=== PATIENT | male | born 1970 | race Caucasian/White ===

== ENCOUNTER 2025-08-11 21:20 | Emergency (ER) | payer SELFPAY ==
[2025-08-11 21:40] VITALS: BMI 30.5
[2025-08-11 21:41] VITALS: BP 133/90
[2025-08-11 21:56] LABS: Hematocrit 43.7 % (39.0-52.0); Hemoglobin 15.0 g/dL (13.0-18.0); Mean Corp Hgb Conc. 34.3 g/dL (33.0-37.0); Mean Corpuscular Volume 87.8 fL (80.0-94.0); Nucleated Red Blood Cells % 0 % (-); Platelet Count 283 10^3/uL (130-400); Red Cell Dist. Width 13.2 % (11.5-14.5)
[2025-08-11 22:00] VITALS: BP 116/59
[2025-08-12] VITALS: BP 130/88
[2025-08-12 01:00] VITALS: BP 126/69
--- NOTE | 2025-08-12 01:28 | ED.GENMED ---
History of Present Illness
General
Chief Complaint: Overdose Unintentional
Source: patient and ambulance crew
Exam Limitations: none
Time Seen by Provider: 08/11/25 23:05
Nursing documentation reviewed up to this point in time: agreed with
History of Present Illness
History of Present Illness:
55-year-old male presenting to the emergency department today after receiving Narcan by EMS. Apparently he was found on the train, from [place] and was lethargic breathing slowly was given Narcan. He admits to using fentanyl last night. Does
use daily. He has no interest in speaking abuse smokes at this time. Currently asymptomatic denies any concerns at this time. Denies any chest pain shortness breath or other issues.
Review of Systems
Review of Systems
Allergies reviewed?: Yes
All Other Systems: ROS reviewed and negative except as documented in HPI and ROS
Phy Exam
Physical Exam
Physical Exam:
GENERAL: Alert , in no apparent distress
EYE: pupils equal and reactive
NECK: Supple, no significant adenopathy.
ENT: o/p clr, mmm.
CARDIAC: Regular rate and rhythm .
LUNGS: Clear breath sounds bilaterally, no acute respiratory distress, no wheezes/rales/rhonchi
ABDOMEN: Soft, without focal tenderness, no r/g, no cvat
NEUROLOGICAL: Alert and oriented, no focal neuro deficits
SKIN: Warm and dry, skin intact.
MUSCULOSKELETAL: No edema, well perfused.
PSYCH: Normal and appropriate interaction.
Course
Orders/Labs/Results
Orders:
Orders
08/11/25 21:47
Complete Blood Count/With Diff Urgent
Abnormal Lab Results
08/11/25
21:47
WBC 13.5 H 10^3/uL
(4.8-10.8)
MPV 10.8 H fL
(7.4-10.4)
Abs Immat Gran (auto) 0.1 H 10^3/uL
(0-0.05)
Absolute Neuts (auto) 9.7 H 10^3/uL
(1.4-6.5)
Absolute Monos (auto) 1.3 H 10^3/uL
(0.1-0.6)
Lymphocytes % 15.9 L %
(20.5-51.1)
08/11/25 21:47
08/11/25 22:07
Vital Signs
Initial and Last Documented VS:
Initial Vital Signs
Temp Pulse Resp Pulse Ox
97.8 F 74 16 99
08/11/25 21:23 08/11/25 21:23 08/11/25 21:23 08/11/25 21:23
Last Documented Vital Signs
Temp Pulse Resp BP Pulse Ox
97.8 F 66 17 109/63 95
08/11/25 21:23 08/12/25 03:00 08/12/25 03:00 08/12/25 03:00 08/12/25 03:00
MDM/Problems Addressed
MDM/Problems Addressed:
55-year-old male presenting to department today with concern of fentanyl overdose. Received Narcan prior to arrival. Currently asymptomatic normal vital signs CBC normal. Patient at this time patient was offered with the [facility] and get substance
abuse he declined this at this time. Otherwise stable for discharge. Return precautions given.
*Pulse Oximetry
SaO2: 99
Oxygen Mode of Delivery: Room air
Patient hypoxic: no (95)
*Critical Care Note
Total Time (30-74mins, 75-104mins- exclusive of procedures): Not Applicable
ED Attending Note
-
Portions of this chart may have been created with voice recognition software.� Occasional wrong word or��sound alike� substitutions may have occurred due to the inherent limitations of voice recognition software.
Discharge Plan
Departure
Patient Disposition: Home (Routine Discharge)
Date of Disposition: 08/12/25
Time of Disposition: 05:38
Patient with high blood pressure during this ER visit?: No
Condition: Good
Covid-19: Not Applicable
Discharge Problem:
Accidental fentanyl overdose
Instructions: Accidental Overdose (DC)
Referrals:
UNKNOWN - PT DOES,NOT KNOW [Family Provider]
Activity Restrictions/Additional Instructions:
Please follow-up with senior contract specialist as an outpatient. Return for any worsening, new or concerning symptoms.
Interventions
Interventions:
*Risk Screen - Suicide Last Done: 08/11/25 21:23
*General Assessment Last Done: 08/11/25 21:41
*Neglect/Abuse Screening Last Done: 08/11/25 21:23
*ED- Fall Risk Assessment Last Done: 08/11/25 21:41
*ED COVID-19 Vaccine History Last Done: 08/11/25 21:41
*ED Influenza Vaccine History Last Done: 08/11/25 21:41
ED- Cardiac Assessment Last Done: 08/11/25 21:41
ED- Neurological Assessment Last Done: 08/11/25 21:41
ED-Psychological Assessment Last Done: 08/11/25 21:41
ED- Pulmonary Assessment Last Done: 08/11/25 21:41
Discharge Date and Time
Print Language: FAROESE
[2025-08-12 02:00] VITALS: BP 113/60
[2025-08-12 03:00] VITALS: BP 109/63
[2025-08-12 04:00] VITALS: BP 118/76
[2025-08-12 05:00] VITALS: BP 113/69
== END 2025-08-12 06:04 | disposition home or self-care (01) ==
LOC: EMR 21:20
PROVIDERS: Emergency Medicine; EMERGENCY PHYSICIAN Emergency Medicine
DX: T40.411A Poisoning by fentanyl or fentanyl analogs, accidental (unintentional), initial encounter (principal); R53.83 Other fatigue; Y92.815 Train as the place of occurrence of the external cause
CPT/HCPCS: 99283; 85025